=== PATIENT | female | born 1950 | race African-American/Black ===

== ENCOUNTER 2020-10-07 09:50 | Emergency (ER) | payer OTHER ==
[~2020-10-07] VITALS: Ht 154.9 cm; Wt 74.8 kg
[2020-10-07] MEDS ORDERED: NORVASC5 MG PO (10:12)
[2020-10-07] MEDS ORDERED: HYDROCHLOROTH12.5 M2 PO (10:12)
[2020-10-07] MEDS ORDERED: GLIPIZIDE 10 MG10 MG PO (10:12)
[2020-10-07] MEDS ORDERED: SIMVASTATIN80 MG PO (10:13)
[2020-10-07] MEDS ORDERED: ASA81BEC PO (10:13)
[2020-10-07] MEDS ORDERED: JANUMET 50-1,01 EACH PO (10:13)
[2020-10-07] MEDS ORDERED: CENTRUM SILVER1 EAC5 PO (10:14)
[2020-10-07] MEDS ORDERED: VITAMIN C250 MG PO (10:14)
[2020-10-07 11:03] LABS: URINE BILIRUBIN NEGATIVE (Negative); URINE BLOOD TRACE (Negative); URINE CLARITY CLEAR; URINE COLOR YELLOW; URINE GLUCOSE-RANDOM* 2+ (Negative); URINE KETONES NEGATIVE (Negative); URINE NITRITE-REFLEX NEGATIVE (Negative); URINE PROTEIN (DIPSTICK) NEGATIVE (Negative); URINE SPECIFIC GRAVITY 1.015 (1.005-1.035); URINE UROBILINOGEN 0.2 E.U./dl (0.2-1.0)
[2020-10-07 11:04] LABS: URINE LEUKOCYTES-REFLEX 1+ (Negative)
[2020-10-07 11:17] LABS: CASTS None Seen /LPF (None Seen); SQUAMOUS >10 Many /LPF (0-3)
[2020-10-07 11:18] LABS: BACTERIA-REFLEX 1-9 Few /HPF (None Seen); CRYSTALS None Seen /LPF (None Seen); URINE RBC 1-2 Rare /HPF (NONE SEEN); URINE WBC-REFLEX 6-15 Few /HPF (0-5)
[2020-10-07 12:05] LABS: ABSOLUTE NEUTROPHILS 4.1 thou/uL (1.4-8.2); BASOPHILS 0.4 % (0.0-2.0); EOSINOPHILS 1.5 % (0.0-3.0); HEMATOCRIT 39.5 % (37.0-47.0); HEMOGLOBIN 13.8 gm/dL (12.0-15.0); LYMPHOCYTES 37.2 % (24.0-44.0); MCH 29.7 pg (26.0-34.0); MCHC 34.8 g/dL (28.0-37.0); MCV 85.3 fL (80.0-100.0); MONOCYTES 7.5 % (1.0-8.0); PLATELET COUNT 236 thou/uL (150-400); POLYS 53.4 % (36.0-66.0); RBC 4.63 mil/uL (4.20-5.00); RDW 13.4 % (10.5-14.5); WBC 7.6 thou/uL (4.0-11.0)
[2020-10-07 12:14] LABS: ANION GAP 8 mmol/L (7-16); BUN 12 mg/dL (7-18); CALCIUM 9.4 mg/dL (8.5-10.1); CHLORIDE 103 mmol/L (98-107); CO2 29 mmol/L (21-32); CREATININE 0.8 mg/dL (0.6-1.0); GLUCOSE 200 mg/dL (74-106); POTASSIUM 3.8 mmol/L (3.5-5.1); SODIUM 140 mmol/L (136-145)
[2020-10-07 12:24] LABS: ALBUMIN 3.8 g/dL (3.4-5.0); MAGNESIUM 1.4 mg/dL (1.8-2.4); SGOT 23 U/L (15-37); SGPT 49 U/L (30-65); TOTAL BILIRUBIN 0.4 mg/dL (0.2-1.0); TOTAL PROTEIN 8.2 g/dL (6.4-8.2); TROPONIN-I <0.06 ng/mL (<0.06)
--- NOTE | 2020-10-07 12:36 | EKG ---
[address] [address] ELECTROCARDIOGRAM REPORT Name: HUI RAMOS [id number] Admission: 10/07/20 Attend Phys: Discharge: Date of : 46 Report #: [id number] [facility] ED Test Date: 2020-10-07 Test Time: 11:02:22 Pat Name: HUI RAMOS Department: Room: Gender: F Resource Room Special Education Teacher: : [id number] Requested By: Rei Rivera Order Number: [id number] MD: Buck Sorto Measurements Intervals [place] Rate: 66 P: 50 LA: 213 QRS: 37 QRSD: 81 T: 32 QT: 426 QTc: 447 Interpretive Statements Sinus rhythm Borderline prolonged LA interval No previous ECG available for comparison Electronically Signed On 10-07-2020 12:36:20 CDT by Buck Sorto [email or web address] <ELECTRONICALLY SIGNED> By: Buck Sorto MD, [facility] 10/07/20 1236 1102 1102 Buck Sorto MD, FACC /EPI
[2020-10-07] MEDS ORDERED: MAGNESIUM250 M1 PO (12:52)
[2020-10-07 13:52] VITALS: BP 168/93
== END 2020-10-07 13:55 | disposition home or self-care (01) ==
LOC: ER 09:50
PROVIDERS: Emergency Medicine
DX: R20.2 Paresthesia of skin (principal); E83.42 Hypomagnesemia; E11.40 Type 2 diabetes mellitus with diabetic neuropathy, unspecified; I10 Essential (primary) hypertension; E78.5 Hyperlipidemia, unspecified; Z79.82 Long term (current) use of aspirin; Z79.899 Other long term (current) drug therapy; Z88.0 Allergy status to penicillin